=== PATIENT | female | born 1990 | race Caucasian/White ===

== ENCOUNTER 2017-06-11 11:15 | Emergency (ER) | payer OTHER ==
[~2017-06-11 11:15] MED LIST: CALCCHW25 PO; CYCL-36 PO; DOCU50SY2 PO; PERC5TAB12 PO; SPRI28TA PO
[2017-06-11 11:18] VITALS: BP 137/88; PULSE 100; RESP 16; TEMP 98.2; O2SAT 100
[2017-06-11] MEDS ORDERED: SODIUM CHLORIDE 0.9% FLUSH 10 ML FLUSH IV FLUSH PRN (11:30)
[2017-06-11] MEDS ORDERED: ONDANSETRON HCL 4 MG/2 ML VIAL IVP ONE (11:30)
[2017-06-11] MEDS ORDERED: SODIUM CHLOR 0.9% 1000 ML INJ 1,000 ML IV SCH (11:30)
[2017-06-11 11:40] VITALS: BP 140/95; PULSE 61; RESP 16; O2SAT 99
[2017-06-11 11:59] LABS: BILIRUBIN, URINE NEG (NEG); BLOOD, URINE LARGE (NEG); GLUCOSE,URINE NEG (NEG); KETONE, URINE NEG (NEG); NITRITE,URINE NEG (NEG); PH, URINE 5.5 (5.0-8.5); URINE LEUKOCYTE ESTERASE SMALL (NEG)
[2017-06-11 12:01] LABS: AUTOMATED NEUTROPHIL # 1.6 TH/MM3 (1.8-7.7); BASOPHIL # 0.2 TH/MM3 (0-0.2); EOSINOPHIL # 0.2 TH/MM3 (0-0.4); EOSINOPHIL % 4.6 % (0.0-4.0); HEMATOCRIT 40.3 % (35.0-46.0); HEMOGLOBIN 13.5 GM/DL (11.6-15.3); LYMPH % 45.1 % (9.0-44.0); LYMPHOCYTE # 1.7 TH/MM3 (1.0-4.8); MEAN CORPUSCULAR HEMOGLOBIN 29.8 PG (27.0-34.0); MEAN CORPUSCULAR HGB CONC 33.5 % (32.0-36.0); MEAN PLATELET VOLUME 10.1 FL (7.0-11.0); MONO % 6.7 % (0.0-8.0); MONOCYTE # 0.3 TH/MM3 (0-0.9); NEUT % 39.6 % (16.0-70.0); PLATELET COUNT 187 TH/MM3 (150-450); RED BLOOD COUNT 4.53 MIL/MM3 (4.00-5.30); RED CELL DISTRIBUTION WIDTH 12.7 % (11.6-17.2)
[2017-06-11 12:02] LABS: URINE COLOR YELLOW (YELLW/STRAW)
[2017-06-11 12:04] LABS: AMORPHOUS SEDIMENT, URINE FEW; BACTERIA, URINE FEW /hpf; SQUAMOUS EPITHELIAL CELL URINE > 8 /hpf (0-5)
--- NOTE | 2017-06-11 12:04 | PD ---
HPI Chief Complaint: GI Complaint Time Seen by Provider: 12:01 Travel History International Travel<30 days: No Contact w/Intl Traveler<30days: No Traveled to known affect area: No History of Present Illness HPI 26-year-old female patient with history of gastroparesis, presents to the ER today with 2 weeks' history of nausea, abdominal discomfort which she currently rates at a 5 out of 10 mostly on the epigastrium and left lower quadrant, constipation. She denies any vomiting, fevers, or other symptoms. She has had similar symptoms in the past, was diagnosed with gastroparesis. She has tried several [id number] constipation treatment but states that she is not able to get a good bowel movement. Modifying Factors: None Associated Signs & Symptoms: Nausea, constipation, abdominal pain Risk Factors: Gastroparesis PFSH Past Medical History Diminished Hearing: No Gastrointestinal Disorders: Yes (Gastritis and Gastroparesis) Musculoskeletal: Yes (Neck fracture with multiple disc involvement) Immunizations Current: Yes Tetanus Vaccination: < 5 Years Influenza Vaccination: Yes ?: Not LMP: NOW Past Surgical History Tonsillectomy: Yes Social History Alcohol Use: No Tobacco Use: No Substance Use: No Allergies-Medications (Allergen,Severity, Reaction): Coded Allergies: No Known Allergies (Unverified Adverse Reaction, Unknown, 06/11/17) Reported Meds & Prescriptions Reported Meds & Active Scripts Active Percocet 5-325 mg (Oxycodone/Acetaminophen) Oxycodone 5/325 Acetaminophen Tab 1 Tab PO Q8 PRN Flexeril (Cyclobenzaprine HCl) 10 Mg Tab 10 Mg PO Q12 Reported Docusate Sodium 50 Mg/5 Ml Liq 100 Mg PO DAILY Calcium + D (Calcium Carbonate/Cholecalciferol) Chw 1 Tab PO DAILY Sprintec 28 (Ethinyl Estradiol/Norgestimate) 1 Tab Tab 1 Tab PO DAILY Review of Systems Except as stated in HPI: all other systems reviewed are Neg Physical Exam Narrative GENERAL: Well-developed young female patient currently in mild distress. Awake and oriented 3. SKIN: Focused skin assessment warm/dry. HEAD: Atraumatic. Normocephalic. EYES: Pupils equal and round. No scleral icterus. No injection or drainage. ENT: No nasal bleeding or discharge. Mucous membranes pink and moist. NECK: Trachea midline. No JVD. CARDIOVASCULAR: Regular rate and rhythm. No murmur appreciated. RESPIRATORY: No accessory muscle use. Clear to auscultation. Breath sounds equal bilaterally. GASTROINTESTINAL: Abdomen soft, mild epigastric and mild left lower quadrant tenderness without guarding or rebound, nondistended. Hepatic and splenic margins not palpable. MUSCULOSKELETAL: No obvious deformities. No clubbing. No cyanosis. No edema. NEUROLOGICAL: Awake and alert. No obvious cranial nerve deficits. Motor grossly within normal limits. Normal speech. PSYCHIATRIC: Appropriate mood and affect; insight and judgment normal. Data Data Last Documented VS Vital Signs Date Time Temp Pulse Resp B/P (MAP) Pulse Ox O2 Delivery O2 Flow Rate FiO2 06/11/17 11:40 61 16 140/95 (110) 99 Room Air 06/11/17 11:18 98.2 Orders Orders Complete Blood Count With Diff (06/11/17 11:30) Comprehensive Metabolic Panel (06/11/17 11:30) Lipase (06/11/17 11:30) Urinalysis - C+S If Indicated (06/11/17 11:30) Iv Access Insert/Monitor (06/11/17 11:30) Ecg Monitoring (06/11/17 11:30) Oximetry (06/11/17 11:30) Ondansetron Inj (Zofran Inj) (06/11/17 11:30) Sodium Chlor 0.9% 1000 Ml Inj (Ns 1000 M (06/11/17 11:30) Sodium Chloride 0.9% Flush (Ns Flush) (06/11/17 11:30) Ed Urine Pregnancytest Poc (06/11/17 11:30) Abdomen, Flat & Upright (06/11/17 12:01) Urine Culture (06/11/17 11:51) Thyroid Stimulating Hormone (06/11/17 12:08) Free T3 (06/11/17 12:17) Free Thyroxine (T4) (06/11/17 12:17) Labs Laboratory Tests Test 06/11/17 11:41 06/11/17 11:51 White Blood Count 4.0 TH/MM3 Red Blood Count 4.53 MIL/MM3 Hemoglobin 13.5 GM/DL Hematocrit 40.3 % Mean Corpuscular Volume 89.0 FL Mean Corpuscular Hemoglobin 29.8 PG Mean Corpuscular Hemoglobin Concent 33.5 % Red Cell Distribution Width 12.7 % Platelet Count 187 TH/MM3 Mean Platelet Volume 10.1 FL Neutrophils (%) (Auto) 39.6 % Lymphocytes (%) (Auto) 45.1 % Monocytes (%) (Auto) 6.7 % Eosinophils (%) (Auto) 4.6 % Basophils (%) (Auto) 4.0 % Neutrophils # (Auto) 1.6 TH/MM3 Lymphocytes # (Auto) 1.7 TH/MM3 Monocytes # (Auto) 0.3 TH/MM3 Eosinophils # (Auto) 0.2 TH/MM3 Basophils # (Auto) 0.2 TH/MM3 CBC Comment DIFF FINAL Differential Comment Blood Urea Nitrogen 12 MG/DL Creatinine 0.92 MG/DL Random Glucose 86 MG/DL Total Protein 7.8 GM/DL Albumin 3.8 GM/DL Calcium Level 9.1 MG/DL Alkaline Phosphatase 36 U/L Aspartate Amino Transf (AST/SGOT) 25 U/L Alanine Aminotransferase (ALT/SGPT) 28 U/L Total Bilirubin 0.6 MG/DL Sodium Level 140 MEQ/L Potassium Level 3.8 MEQ/L Chloride Level 106 MEQ/L Carbon Dioxide Level 26.0 MEQ/L Anion Gap 8 MEQ/L Estimat Glomerular Filtration Rate 74 ML/MIN Lipase 154 U/L Thyroid Stimulating Hormone 3rd Gen 0.963 uIU/ML Urine Collection Type CLEAN CATCH Urine Color YELLOW Urine Turbidity SLIGHT Urine pH 5.5 Urine Specific [place] 1.021 Urine Protein NEG mg/dL Urine Glucose (UA) NEG mg/dL Urine Ketones NEG mg/dL Urine Occult Blood LARGE Urine Nitrite NEG Urine Bilirubin NEG Urine Leukocyte Esterase SMALL Urine RBC 10-14 /hpf Urine WBC 9-14 /hpf Urine WBC Clumps OCC Urine Squamous Epithelial Cells > 8 /hpf Urine Transitional Epithelial Cells 0-5 /hpf Urine Amorphous Sediment FEW Urine Bacteria FEW /hpf Microscopic Urinalysis Comment CULTURE INDICATED Urine Collection Time 1151 MDM Medical Decision Making Medical Screen Exam Complete: Yes Emergency Medical Condition: Yes Medical Record Reviewed: Yes Interpretation(s) Laboratory Tests Test 06/11/17 11:41 06/11/17 11:51 Lymphocytes (%) (Auto) 45.1 % (9.0-44.0) Eosinophils (%) (Auto) 4.6 % (0.0-4.0) Basophils (%) (Auto) 4.0 % (0.0-2.0) Neutrophils # (Auto) 1.6 TH/MM3 (1.8-7.7) Alkaline Phosphatase 36 U/L (45-117) Estimat Glomerular Filtration Rate 74 ML/MIN (>89) Urine Occult Blood LARGE (NEG) Urine Leukocyte Esterase SMALL (NEG) Urine RBC 10-14 /hpf (0-3) Urine WBC 9-14 /hpf (0-5) Urine WBC Clumps OCC (NONE) Urine Squamous Epithelial Cells > 8 /hpf (0-5) Urine Bacteria FEW /hpf (NONE) Last 24 hours Impressions Abdomen X-Ray 06/11/17 1201 Signed Impressions: Service Date/Time: Tuesday, June 11, 2017 12:16 - CONCLUSION: 1. Unremarkable abdominal radiographs. Nonobstructive bowel gas pattern. Fernando Chandler MD Differential Diagnosis Constipation versus gastroparesis versus gastroenteritis versus obstruction Narrative Course Abdomen is fairly benign and I'm not suspecting acute intra-abdominal process. Her x-ray did not show any signs of obstruction. Her lab work does show UTI which may be making her feel worse as well. My plan would be to treat her UTI. Patient states that she is already on stool softeners at home and she can continue that. Follow-up with primary care doctor. Return for worsening in symptoms as needed. The plan has been discussed with her and she states understanding. Diagnosis Primary Impression: UTI (urinary tract infection) Additional Impression: Constipation Med/Other Pt SpecificInfo: Prescription(s) given Scripts Ciprofloxacin (Ciprofloxacin) 500 Mg Tab 500 MG PO BID for Infection for 5 Days, #10 TAB 0 Refills Prov: Lizbeth Valencia MD 06/11/17 Disposition: 01 DISCHARGE HOME Condition: Stable Lizbeth Valencia MD Jun 11, 2017 12:04
[2017-06-11 12:05] LABS: TRANSITIONAL EPI CELLS, URINE 0-5 /hpf; WHITE BLOOD CELL CLUMPS OCC
[2017-06-11 12:10] LABS: CHLORIDE 106 MEQ/L (98-107); SODIUM (NA) 140 MEQ/L (136-145)
[2017-06-11 12:14] LABS: ALBUMIN 3.8 GM/DL (3.4-5.0); BLOOD UREA NITROGEN 12 MG/DL (7-18); CALCIUM 9.1 MG/DL (8.5-10.1); GLUCOSE,RANDOM 86 MG/DL (74-106); LIPASE 154 U/L (73-393)
[2017-06-11 12:17] LABS: ALT (GPT) 28 U/L (10-53); AST (GOT) 25 U/L (15-37); CREATININE 0.92 MG/DL (0.50-1.00); GLOMERULAR FILTRATION RATE 74 ML/MIN (>89)
[2017-06-11 12:19] LABS: TOTAL BILIRUBIN ADULT 0.6 MG/DL (0.2-1.0); TOTAL PROTEIN 7.8 GM/DL (6.4-8.2)
[2017-06-11 12:20] LABS: ALKALINE PHOSPHATASE 36 U/L (45-117)
--- NOTE | 2017-06-11 12:32 | RADRPT ---
EXAM DATE/TIME: 06/11/2017 12:16 [facility] COMPARISON: No previous studies available for comparison. INDICATIONS : Abdomen pain for 2 weeks MEDICAL HISTORY : Gastroparesis. SURGICAL HISTORY : None. ENCOUNTER: Initial ACUITY: 2 weeks PAIN SCORE: 5/10 LOCATION: Bilateral abdomen FINDINGS: Supine and upright views of the abdomen were performed. The abdominal bowel gas pattern is normal. No air fluid levels are seen. No abnormal masses, calcifications, or organomegaly is seen. The visu alized lower lungs are clear. No evidence of free intraperitoneal gas. Small cavitations in the pelv is consistent with phleboliths. The osseous structures are unremarkable. CONCLUSION: 1. Unremarkable abdominal radiographs. Nonobstructive bowel gas pattern. Fernando Chandler MD on June 11, 2017 at 12:29 Board Certified Radiologist. This report was verified electronically.
[2017-06-11 13:25] VITALS: BP 118/60; PULSE 79; RESP 16; O2SAT 100
[2017-06-11] MEDS ORDERED: CIPR500T2 PO (13:51)
[2017-06-11 18:34] LABS: FREE T3 3.3 PG/ML (2.18-3.98); FREE T4 1.36 NG/DL (0.76-1.46)
== END 2017-06-11 14:32 | disposition home or self-care (01) ==
LOC: PHED 11:15
DX: N39.0 Urinary tract infection, site not specified (principal); K59.00 Constipation, unspecified; K31.84 Gastroparesis; B95.1 Streptococcus, group B, as the cause of diseases classified elsewhere
CPT/HCPCS: 74020; 80053; 81001; 83690; 84439; 84443; 84481; 84703; 85025; 86403; 87086; 96361; 96374; 99284; J2405; J7030